=== PATIENT | male | born 1960 | race Caucasian/White ===

== ENCOUNTER 2017-12-13 08:57 | Emergency (ER) | payer BC ==
--- NOTE | 2017-12-13 09:08 | PDOC ---
History of Present Illness - General Chief Complaint: Pain Stated Complaint: RT KNEE PAIN Time Seen by Provider: 12/13/17 09:08 - History of Present Illness Initial Comments: 12/13/17 09:09 52-year-old male with a history of cardiac bypass status post stent on aspirin 4 years ago, left knee meniscus surgery 6 years ago, hypertension, diabetes, arthritis presents to emergency department with right knee pain for 2 days. Patient reports pain began after he pushed himself at [facility]. He reports he ran in place for an hour in the pool and may have unevenly stepped on the drain in the pool. He reports since then pain mostly on the medial aspect of his knee, mostly while ambulating and worse with twisting or pivoting with the right knee. He denies any current pain while seated. He took 2 ibuprofen this morning, which he reports he is not supposed to take due to his cardiac bypass and reports improvement in his pain. Denies any popping of the knee. Denies any recent falls on the knee. Has otherwise been in his usual state of health. He's been using a cane to ambulate for the last 2 days studies had since his left knee surgery. Denies fevers, chills, chest pain, shortness of breath, abdominal pain, nausea/vomiting/diarrhea, lower extremity edema, recent immobility Past History - Past Medical History Allergies/Adverse Reactions: Allergies Allergy/AdvReac Type Severity Reaction Status Date / Time No Known Allergies Allergy Verified 12/13/17 08:58 Home Medications: Ambulatory Orders Aspirin Coated [Ecotrin -] 81 mg PO DAILY 07/03/16 Metformin HCl 850 mg PO BID 07/03/16 Metoprolol Succinate [Toprol Xl] 100 mg PO DAILY 07/03/16 Atorvastatin Ca [Lipitor] 80 mg PO HS 12/13/17 Celecoxib [Celebrex -] 200 mg PO DAILY 12/13/17 Furosemide [Lasix -] 40 mg PO PRN PRN 12/13/17 Ibuprofen 400 mg PO PRN PRN 12/13/17 Olmesartan Medoxomil 40 mg PO DAILY 12/13/17 Cardiac Disorders: Yes (3X BYPASS/STENT) Diabetes: Yes - Immunization History Immunization Up to Date: Yes - Suicide/Smoking/Psychosocial Hx Smoking Status: No Smoking History: Unknown if ever smoked Have you smoked in the past 12 months: No Number of Cigarettes Smoked Daily: 0 If you are a former smoker, when did you quit?: 2004 Hx Alcohol Use: No Drug/Substance Use Hx: No Substance Use Type: None Review of Systems - Review of Systems Comments:: 12/13/17 09:13 GENERAL/CONSTITUTIONAL: No fever or chills. No weakness. HEAD, EYES, EARS, NOSE AND THROAT: No change in vision. No ear pain or discharge. No sore throat. GASTROINTESTINAL: No nausea, vomiting, diarrhea or constipation. GENITOURINARY: No dysuria, frequency, or change in urination. CARDIOVASCULAR: No chest pain or shortness of breath. RESPIRATORY: No cough, wheezing, or hemoptysis. MUSCULOSKELETAL: +knee pain. No neck or back pain. SKIN: No rash NEUROLOGIC: No headache, vertigo, loss of consciousness, or change in strength/ sensation. ENDOCRINE: No increased thirst. No abnormal weight change. HEMATOLOGIC/LYMPHATIC: No anemia, easy bleeding, or history of blood clots. ALLERGIC/IMMUNOLOGIC: No hives or skin allergy. *Physical Exam - Physical Exam Comments: 12/13/17 09:13 GENERAL: Obese. Awake, alert, and fully oriented, in no acute distress HEAD: No signs of trauma EYES: PERRLA, EOMI, sclera anicteric, conjunctiva clear ENT: Auricles normal inspection, hearing grossly normal, nares patent, oropharynx clear without exudates. Moist mucosa NECK: Normal ROM, supple, no lymphadenopathy, JVD, or masses LUNGS: Breath sounds equal, clear to auscultation bilaterally. No wheezes, and no crackles HEART: Regular rate and rhythm, normal S1 and S2, no murmurs, rubs or gallops ABDOMEN: Soft, nontender, normoactive bowel sounds. No guarding, no rebound. No masses EXTREMITIES: Normal range of motion, no edema. No clubbing or cyanosis. No cords, erythema, or tenderness. R knee with no ttp, no pain with valgus or varus strain, no MCL, LCL ttp, negative tim test. Pt able to ambulate in ED and bear weight on R knee with no assistance. 2+ peripheral pulses. NEUROLOGICAL: Normal speech, cranial nerves intact, negative pronator drift, 5/ 5 strength in all 4 extremities, normal sensation to light touch in all 4 extremities, normal cerebellar exam, normal gait, normal reflexes and tone SKIN: Warm, Dry, normal turgor, no rashes or lesions noted. Medical Decision Making - Medical Decision Making 12/13/17 09:15 57-year-old male with multiple medical problems presents with right knee pain after pushing himself at physical therapy 2 days ago. Exam with no tenderness to palpation, no deformities to the right knee, and minimal concern for ACL tear given patient able to bear weight and negative Tim's test. Given pain mostly with bearing weight and worse with pivoting on the right knee, likely meniscal tear. Will obtain an x-ray to rule out bony injury and treat pain with tramadol and reassess. 12/13/17 10:21 X-ray negative for acute pathology. Tramadol has helped moderately with the pain. Will refer the patient to orthopedics and prescribed tramadol as needed for pain. Patient requests discharge home. I discussed the physical exam findings, ancillary test results and final diagnoses with the patient. I answered all of the patient's questions. The patient was satisfied with the care received and felt comfortable with the discharge plan and treatment plan. The patient will call their primary care physician within 24 hours to arrange follow-up and will return to the Emergency Department with any new, persistent or worsening symptoms. *DC/Admit/Observation/Transfer Diagnosis at time of Disposition: Knee pain - Discharge Dispostion Disposition: HOME Condition at time of disposition: Stable Admit: No - Referrals Referrals: Charly Morales MD [Staff Physician] - - Patient Instructions Printed Discharge Instructions: DI for Knee Pain Additional Instructions: Call Dr. Morales's office for a follow-up appointment with an orthopedic doctor within 1-2 weeks. Take Tylenol as needed for pain (you can safely take 1000mg every 6 hours). If Tylenol is not adequately controlling your pain, take tramadol as needed for pain control. Tramadol can make you sleepy and thus do not drive a car or operate machinery while taking this medication. Return to emergency department if you have any new, worsening or concerning symptoms. - Post Discharge Activity - Attestations Physician Attestion: 12/13/17 10:24 I, Dr. Oziel Verdin MD, attest that this document has been prepared under my direction and personally reviewed by me in its entirety. I further attest, that it accurately reflects all work, treatment, procedures and medical decision -making performed by me.
[2017-12-13] MEDS ORDERED: traMADol HCL 50 MG TABLET PO ONE (09:09)
[2017-12-13 09:10] VITALS: BP 145/79; PULSE 80; TEMP 98.9; BMI 52.9
[2017-12-13] MEDS ORDERED: traMADol HCL 50 MG TABLET ONE (09:11)
== END 2017-12-13 10:35 | disposition home or self-care (01) ==
LOC: FER 08:57
DX: M25.561 Pain in right knee (principal); E11.9 Type 2 diabetes mellitus without complications; Z95.5 Presence of coronary angioplasty implant and graft; Z87.891 Personal history of nicotine dependence
CPT/HCPCS: 73562-TC-RT-FY; 99282-25

== ENCOUNTER 2019-01-08 17:11 | Emergency (ER) | payer BC ==
--- NOTE | 2019-01-08 17:20 | PDOC ---
History of Present Illness - General History Source: Patient Exam Limitations: No Limitations - History of Present Illness Initial Comments: 01/08/19 17:48 The patient is a 58 year old male, with a significant past medical history of HTN, morbid obesity, HLD, COPD, CAD s/p PCI, CABG x3, Sleep apnea (CPAP nightly ) who presents to the emergency department with complaint of dizziness when rolling over in bed for 2 days. He states his symptoms were worse last night and associated with sweating. He states he was prompted to come to the ED this evening because he was laying on the couch watching TV and developed spinning sensation which lasted 60-80 seconds followed by 10 minutes of nausea. He denies any other associated symptoms. He states he has about 4-5 shots of ETOH each evening. He denies drinking today. The patient denies chest pain, shortness of breath, headache. The patient denies fever, chills, vomit, diarrhea and constipation. The patient denies dysuria, frequency, urgency and hematuria. Allergies: NKDA PCP - Dr. Banda <Nataliia Urbano - Last Filed: 01/08/19 17:48> <Vanita Porter - Last Filed: 01/08/19 18:36> - General Chief Complaint: Lightheaded Stated Complaint: DIZZINESS Time Seen by Provider: 01/08/19 17:19 Past History <Nataliia Urbano - Last Filed: 01/08/19 17:48> - Past Medical History Cardiac Disorders: Yes (3X BYPASS/STENT) COPD: No Diabetes: Yes - Surgical History Cardiac Surgery: Yes (TRIP BYPASS,STENT) - Immunization History Immunization Up to Date: Yes - Suicide/Smoking/Psychosocial Hx Smoking Status: No Smoking History: Unknown if ever smoked Have you smoked in the past 12 months: No Number of Cigarettes Smoked Daily: 0 If you are a former smoker, when did you quit?: 2004 Hx Alcohol Use: No Drug/Substance Use Hx: No Substance Use Type: None <Vanita Porter - Last Filed: 01/08/19 18:36> - Past Medical History Allergies/Adverse Reactions: Allergies Allergy/AdvReac Type Severity Reaction Status Date / Time No Known Allergies Allergy Verified 01/08/19 17:12 Home Medications: Ambulatory Orders Aspirin [ASA -] 81 mg PO DAILY 01/08/19 Atorvastatin Ca [Lipitor] 80 mg PO HS 01/08/19 Celecoxib [Celebrex] 200 mg PO DAILY 01/08/19 Metoprolol Succinate [Toprol Xl -] 100 mg PO DAILY 01/08/19 Olmesartan Medoxomil [Benicar] 20 mg PO DAILY 01/08/19 Spironolactone [Aldactone] 25 mg PO DAILY 01/08/19 metFORMIN HCL [Metformin HCl] 850 mg PO BID 01/08/19 Review of Systems - Review of Systems Able to Perform ROS?: Yes Comments:: 01/08/19 17:48 GENERAL/CONSTITUTIONAL: (+) sweating. No fever or chills. No weakness. HEAD, EYES, EARS, NOSE AND THROAT: No change in vision. No ear pain or discharge. No sore throat. CARDIOVASCULAR: No chest pain or shortness of breath. RESPIRATORY: No cough, wheezing, or hemoptysis. GASTROINTESTINAL: (+) nausea, No vomiting, diarrhea or constipation. GENITOURINARY: No dysuria, frequency, or change in urination. MUSCULOSKELETAL: No joint or muscle swelling or pain. No neck or back pain. SKIN: No rash NEUROLOGIC: (+) Dizziness. No headache, loss of consciousness, or change in strength/sensation. ENDOCRINE: No increased thirst. No abnormal weight change. HEMATOLOGIC/LYMPHATIC: No anemia, easy bleeding, or history of blood clots. ALLERGIC/IMMUNOLOGIC: No hives or skin allergy. <Nataliia Urbano - Last Filed: 01/08/19 17:48> *Physical Exam - Vital Signs Last Vital Signs Temp Pulse Resp BP Pulse Ox 97.7 F 69 20 138/75 100 01/08/19 17:15 01/08/19 17:15 01/08/19 17:15 01/08/19 17:15 01/08/19 17:15 - Physical Exam Comments: 01/08/19 17:49 GENERAL: Awake, alert, and fully oriented, morbidly obese. in no acute distress HEAD: No signs of trauma EYES: PERRLA, EOMI, sclera anicteric, conjunctiva clear ENT: Auricles normal inspection, hearing grossly normal, nares patent, oropharynx clear without exudates. Moist mucosa NECK: Normal ROM, supple, no lymphadenopathy, JVD, or masses LUNGS: Breath sounds equal, clear to auscultation bilaterally. No wheezes, and no crackles HEART: Regular rate and rhythm, normal S1 and S2, no murmurs, rubs or gallops ABDOMEN: Obese. Soft, nontender, normoactive bowel sounds. No guarding, no rebound. No masses EXTREMITIES: Normal range of motion, no edema. No clubbing or cyanosis. No cords, erythema, or tenderness NEUROLOGICAL: Cranial nerves II through XII grossly intact. Normal speech, normal gait SKIN: Warm, Dry, normal turgor, no rashes or lesions noted. <Nataliia Urbano - Last Filed: 01/08/19 17:48> ED Treatment Course - LABORATORY CBC & Chemistry Diagram: 01/08/19 17:41 01/08/19 17:41 <Vanita Porter - Last Filed: 01/08/19 18:36> *DC/Admit/Observation/Transfer - Attestations Scribe Attestion: 01/08/19 17:49 Documentation prepared by Nataliia Urbano, acting as medical affairs specialist for Vanita Porter MD <Nataliia Urbano - Last Filed: 01/08/19 17:48> - Discharge Dispostion Decision to Admit order: No <Vanita Porter - Last Filed: 01/08/19 18:36> Diagnosis at time of Disposition: Lightheadedness - Discharge Dispostion Disposition: HOME Condition at time of disposition: Good - Patient Instructions Printed Discharge Instructions: DI for Dizziness-Nonvertigo Additional Instructions: you came to the ED for lightheadness. Your blood work was normal and youe EKG was unchanged. you should call Dr. Spain for follow up on Friday. You should return to the ED for passing out, chest pain or shortness of breath, other new or worsening symptoms.
[2019-01-08 17:21] VITALS: BP 138/75; PULSE 69; TEMP 97.7; BMI 54.2
[2019-01-08 17:56] LABS: BASO % 1.6 % (0-2.0); EOS % 1.9 % (0-4.5); HEMATOCRIT 46.2 % (35.4-49); HEMOGLOBIN 15.2 GM/dl (11.7-16.9); LYMPH % 16.8 % (8-40); MEAN PLT VOLUME 7.5 fl (7.5-11.1); MONO % 6.1 % (3.8-10.2); NEUT % 73.6 % (42.8-82.8); PLATELET COUNT 258 K/MM3 (134-434); RBC 4.91 M/mm3 (4.00-5.60); RDW 14.1 % (11.9-15.9); WHITE BLOOD COUNT 9.7 K/mm3 (4.0-10.8)
[2019-01-08 18:10] LABS: ALBUMIN 4.1 g/dl (3.4-5.0); ALK PHOS 107 U/L (45-117); ANION GAP 8 MMOL/L (8-16); BILIRUBIN,TOTAL 0.8 mg/dl (0.2-1); BLOOD UREA NITROGEN 22 mg/dl (7-18); CALCIUM 9.2 mg/dl (8.5-10); CHLORIDE 101 mmol/L (98-107); CO2 27 mmol/L (21-32); CREATININE 0.8 mg/dl (0.55-1.3); GLUCOSE,RANDOM 151 mg/dl (74-106); POTASSIUM 4.4 mmol/L (3.5-5.1); SGOT/AST 24 U/L (15-37); SGPT/ALT 33 U/L (13-61); SODIUM 136 mmol/L (136-145)
--- NOTE | 2019-01-09 11:37 | EKG ---
Test Reason : Blood Pressure : / mmHG Vent. Rate : 075 BPM Atrial Rate : 075 BPM P-R Int : 156 ms QRS Dur : 176 ms QT Int : 440 ms P-R-T Axes : 055 027 049 degrees QTc Int : 491 ms NORMAL SINUS RHYTHM RIGHT BUNDLE BRANCH BLOCK INFERIOR INFARCT (CITED ON OR BEFORE 25-MAY-2018) ABNORMAL ECG WHEN COMPARED WITH ECG OF 25-MAY-2018 17:25, RIGHT BUNDLE BRANCH BLOCK HAS REPLACED RSR' PATTERN IN V1 CRITERIA FOR ANTERIOR INFARCT ARE NO LONGER PRESENT Confirmed by RAH FARRELL MD ([id number]) on 01/09/2019 11:36:34 AM Referred By: MD CHEEMA Confirmed By:RAH FARRELL MD
== END 2019-01-08 18:40 | disposition home or self-care (01) ==
LOC: FER 17:11
DX: R42 Dizziness and giddiness (principal); Z95.5 Presence of coronary angioplasty implant and graft; Z95.1 Presence of aortocoronary bypass graft; E11.9 Type 2 diabetes mellitus without complications
CPT/HCPCS: 36415; 80053; 82550; 84484; 85025; 93005; 99283-25

== ENCOUNTER 2019-03-17 20:51 | Emergency (ER) | payer BC | END 2019-03-17 21:55 | disposition home or self-care (01) | LOC: FER 20:51 ==

== ENCOUNTER 2023-06-08 18:25 | Inpatient (IN) | payer BC, OTHER ==
[2023-06-08] MEDS ORDERED: VANCOMYCIN HCL 1,500 MG in DEXTROSE 5%-WATER - 500 ML IVPB ONE (18:35)
[2023-06-08] MEDS ORDERED: PIPERACILLIN/TAZOB 4.5 GM 4.5 GM in DEXTROSE 5%-WATER 100 ML IVPB ONE (18:35)
[2023-06-08] MEDS ORDERED: SODIUM CHLORIDE 0.9% 1000 ML INFUS.BAG IV ONE ×2 (18:39→18:43)
[2023-06-08] MEDS ORDERED: ACETAMINOPHEN 1000 MG/100 ML BAG IVPB ONE ×2 (18:39→19:42)
[2023-06-08] MEDS ORDERED: VANCOMYCIN 1,000 MG VIAL (RESTRICTED TO ID ONLY) ONE (19:15)
[2023-06-08] MEDS ORDERED: VANCOMYCIN 500 MG VIAL (RESTRICTED TO ID ONLY) ONE (19:15)
[2023-06-08 19:35] LABS: HEMATOCRIT 46.6 % (35.4-49); HEMOGLOBIN 15.2 G/dL (11.7-16.9); MCH 30.8 pg (25.7-33.7); MCHC 32.6 g/dl (32.0-35.9); MEAN CELL VOLUME 94.8 fl (80-96); MEAN PLT VOLUME 7.5 fl (7.5-11.1); PLATELET COUNT 190.1 10^3/uL (134-434); RBC 4.92 10^6/uL (4.00-5.60); RDW 14.6 % (11.9-15.9); WHITE BLOOD COUNT 16.2 10^3/uL (4.0-10.8)
[2023-06-08 19:41] LABS: INR 1.58 (0.83-1.09); PROTHROMBIN TIME (PATIENT) 18.3 SEC (9.7-13.0)
[2023-06-08 19:44] LABS: ACTIVATED PTT 30.8 SECONDS (25.2-36.5)
[2023-06-08 20:17] LABS: VENOUS BASE EXCESS 0.5 mmol/L (-2-2); VENOUS O2 SATURATION 92.6 % (70-80); VENOUS PCO2 38.3 mmHg (38-52); VENOUS PH 7.426 (7.310-7.410)
[2023-06-08 20:24] LABS: ALBUMIN 3.6 g/dl (3.4-5.0); BLOOD UREA NITROGEN 18.8 mg/dl (7-18); CALCIUM 8.4 mg/dl (8.5-10.1); CREATININE 1.2 mg/dl (0.6-1.3); MAGNESIUM 1.3 mg/dL (1.8-2.4); POTASSIUM 3.5 mmol/L (3.5-5.1); SGOT/AST 16.2 U/L (15-37); SGPT/ALT 19.4 U/L (7-52); TOT PROT 5.9 g/dl (6.4-8.2)
[2023-06-08 20:28] LABS: BILIRUBIN,TOTAL 1.2 mg/dL (0.2-1)
[2023-06-08 21:05] LABS: LACTIC ACID 2.8 mmol/L (0.4-2.0)
[2023-06-08] MEDS ORDERED: ACETAMINOPHEN 500 MG TABLET (FP) ONE (21:26)
[2023-06-08] MEDS ORDERED: ACETAMINOPHEN 500 MG TABLET (FP) PO ONE (21:26)
[2023-06-08] MEDS ORDERED: PIPERACILLIN/TAZOBACTAM 4.5 GM VIAL IVPB ONE (21:36)
[2023-06-08] MEDS ORDERED: DOCUSATE SODIUM 100 MG CAPSULE (FP) PO PRN (22:06)
[2023-06-08] MEDS ORDERED: MAGNESIUM SULFATE IN WATER 2 GM/50 ML IVPB IVPB ONE (22:10)
[2023-06-08] MEDS ORDERED: MAGNESIUM OXIDE 400 MG TABLET (FP) PO ONE (22:10)
[2023-06-09 00:01] VITALS: BMI 116.4
[2023-06-09] MEDS ORDERED: PIPERACILLIN/TAZOB 3.375 GM 3.375 GM in DEXTROSE 5%-WATER - 50 ML IVPB SCH (03:00)
[2023-06-09] MEDS: PIPERACILLIN/TAZOB 3.375 GM 3.375 GM in DEXTROSE 5%-WATER - 50 ML IVPB SCH ×2 (04:19→11:45)
[2023-06-09] MEDS: INSULIN SLIDING SCALE (NOVOLOG) 1 VIAL SQ SCH ×4 (07:00→22:15)
[2023-06-09] MEDS ORDERED: VANCOMYCIN/WATER 2 GRAMS 2,000 MG/400 ML PIGGYBACK IVPB ONE (08:00)
[2023-06-09 09:31] LABS: INR 1.37 (0.83-1.09); PROTHROMBIN TIME (PATIENT) 15.8 SEC (9.7-13.0)
[2023-06-09] MEDS ORDERED: CELECOXIB 200 MG CAPSULE PO SCH (10:00)
[2023-06-09 10:21] LABS: BLOOD UREA NITROGEN 15.2 mg/dl (7-18); CALCIUM 8.3 mg/dl (8.5-10.1); CREATININE 1.1 mg/dl (0.6-1.3); MAGNESIUM 1.7 mg/dL (1.8-2.4); POTASSIUM 3.7 mmol/L (3.5-5.1)
[2023-06-09] MEDS ORDERED: LACTATED RINGERS SOLUTION 1,000 ML/1,000 ML INFUS.BAG IV SCH (11:30)
[2023-06-09 11:33] LABS: HEMATOCRIT 44.8 % (35.4-49); HEMOGLOBIN 14.3 GM/dL (11.7-16.9); MCH 29.9 pg (25.7-33.7); MCHC 31.8 g/dl (32.0-35.9); MEAN PLT VOLUME 8.2 fl (7.5-11.1); PLATELET COUNT 198 10^3/uL (134-434); RBC 4.77 M/mm3 (4.00-5.60); RDW 15.4 % (11.9-15.9); WHITE BLOOD COUNT 16.8 K/mm3 (4.0-10.0)
[2023-06-09] MEDS: ASPIRIN 81 MG CHEWABLE TABLETS PO SCH (11:46)
[2023-06-09 11:48] LABS: URIC ACID CRYSTALS FEW /hpf (NONE SEEN); URINE MUCUS FEW
[2023-06-09 12:15] LABS: ANISOCYTOSIS 0; HELMET CELLS 0; HOWELL-JOLLY BODIES 0; MACROCYTOSIS 0; OVALOCYTE 0; ROULEAU 0; SICKELED CELLS 0; TARGET CELLS 0; TEAR DROP CELLS 0; TOXIC GRANULATION 0
[2023-06-09] MEDS ORDERED: MAGNESIUM SULF 50% (8.12 MEQ/2 ML-1 GM VIAL) IVPB ONE (12:30)
[2023-06-09] MEDS: PIPERACILLIN/TAZOB 4.5 GM 4.5 GM in DEXTROSE 5%-WATER 100 ML IVPB SCH (17:29)
[2023-06-09] MEDS ORDERED: MAG HYDROX/AL HYDROX/SIMETH 30 ML UNIT-DOSE CUP PO PRN (21:27)
[2023-06-09] MEDS: ATORVASTATIN CA 80 MG TABLET (FP) PO SCH (22:11)
[2023-06-09] MEDS: ENOXAPARIN NA (PORCINE) 40 MG/0.4 ML DISP.SYRIN SQ SCH (23:30)
[2023-06-10] MEDS: PIPERACILLIN/TAZOB 4.5 GM 4.5 GM in DEXTROSE 5%-WATER 100 ML IVPB SCH ×3 (03:00→18:10)
[2023-06-10] MEDS: INSULIN SLIDING SCALE (NOVOLOG) 1 VIAL SQ SCH ×4 (06:34→21:31)
[2023-06-10 08:09] LABS: ALBUMIN 3.2 g/dl (3.4-5.0); BLOOD UREA NITROGEN 11.8 mg/dl (7-18); CREATININE 1.1 mg/dl (0.6-1.3); POTASSIUM 3.7 mmol/L (3.5-5.1); SGOT/AST 24.4 U/L (15-37); SGPT/ALT 25.5 U/L (7-52); TOT PROT 5.5 g/dl (6.4-8.2)
[2023-06-10] MEDS: ENOXAPARIN NA (PORCINE) 40 MG/0.4 ML DISP.SYRIN SQ SCH ×2 (09:10→21:25)
[2023-06-10] MEDS: ASPIRIN 81 MG CHEWABLE TABLETS PO SCH (09:10)
[2023-06-10] MEDS: FAMOTIDINE 20 MG TABLET PO SCH (09:10)
[2023-06-10 10:25] LABS: BILIRUBIN,TOTAL 1.2 mg/dL (0.2-1)
[2023-06-10 11:40] LABS: BASO % 0.5 % (0-2.0); EOS % 0.2 % (0-4.5); HEMATOCRIT 39.1 % (35.4-49); HEMOGLOBIN 12.8 GM/dL (11.7-16.9); MCHC 32.8 g/dl (32.0-35.9); MEAN CELL VOLUME 91.5 fl (80-96); MEAN PLT VOLUME 7.5 fl (7.5-11.1); MONO % 4.8 % (3.8-10.2); NEUT % 87.5 % (42.8-82.8); PLATELET COUNT 195 10^3/uL (134-434); RBC 4.28 M/mm3 (4.00-5.60); RDW 15.6 % (11.9-15.9); WHITE BLOOD COUNT 14.3 K/mm3 (4.0-10.0)
[2023-06-10] MEDS: NYSTATIN 100,000 UNIT/GM TOPICAL CREAM 15 GM TUBE TP SCH ×2 (18:11→21:26)
[2023-06-10] MEDS: ACETAMINOPHEN 325 MG TABLET (FP) PO PRN (21:25)
[2023-06-10] MEDS: ATORVASTATIN CA 80 MG TABLET (FP) PO SCH (21:25)
[2023-06-11] MEDS: PIPERACILLIN/TAZOB 4.5 GM 4.5 GM in DEXTROSE 5%-WATER 100 ML IVPB SCH ×3 (01:57→18:31)
[2023-06-11] MEDS: INSULIN SLIDING SCALE (NOVOLOG) 1 VIAL SQ SCH ×4 (06:16→21:24)
[2023-06-11 07:49] LABS: HEMOGLOBIN 13.2 G/dL (11.7-16.9); MCH 30.5 pg (25.7-33.7); MCHC 32.1 g/dl (32.0-35.9); MEAN CELL VOLUME 94.9 fl (80-96); MEAN PLT VOLUME 7.8 fl (7.5-11.1); PLATELET COUNT 164.4 10^3/uL (134-434); RBC 4.32 10^6/uL (4.00-5.60); RDW 15.4 % (11.9-15.9); WHITE BLOOD COUNT 8.7 10^3/uL (4.0-10.8)
[2023-06-11 08:03] LABS: BLOOD UREA NITROGEN 12.4 mg/dl (7-18); CALCIUM 7.6 mg/dl (8.5-10.1); POTASSIUM 3.7 mmol/L (3.5-5.1)
[2023-06-11] MEDS: ENOXAPARIN NA (PORCINE) 40 MG/0.4 ML DISP.SYRIN SQ SCH ×2 (12:30→21:21)
[2023-06-11] MEDS: ASPIRIN 81 MG CHEWABLE TABLETS PO SCH (12:30)
[2023-06-11] MEDS: FAMOTIDINE 20 MG TABLET PO SCH (12:31)
[2023-06-11] MEDS: NYSTATIN 100,000 UNIT/GM TOPICAL CREAM 15 GM TUBE TP SCH (12:32)
[2023-06-11] MEDS: ACETAMINOPHEN 325 MG TABLET (FP) PO PRN (18:30)
[2023-06-11] MEDS: ATORVASTATIN CA 80 MG TABLET (FP) PO SCH (21:21)
[2023-06-12] MEDS: PIPERACILLIN/TAZOB 4.5 GM 4.5 GM in DEXTROSE 5%-WATER 100 ML IVPB SCH ×3 (01:53→20:42)
[2023-06-12] MEDS: NYSTATIN 100,000 UNIT/GM TOPICAL CREAM 15 GM TUBE TP SCH ×3 (01:54→21:23)
[2023-06-12] MEDS: ENOXAPARIN NA (PORCINE) 40 MG/0.4 ML DISP.SYRIN SQ SCH ×2 (09:56→21:23)
[2023-06-12] MEDS: ASPIRIN 81 MG CHEWABLE TABLETS PO SCH (09:56)
[2023-06-12] MEDS: FAMOTIDINE 20 MG TABLET PO SCH (09:56)
[2023-06-12] MEDS: INSULIN SLIDING SCALE (NOVOLOG) 1 VIAL SQ SCH ×4 (09:57→21:14)
[2023-06-12 11:43] LABS: INR 1.24 (0.83-1.09); PROTHROMBIN TIME (PATIENT) 14.3 SEC (9.7-13.0)
[2023-06-12] MEDS: ATORVASTATIN CA 80 MG TABLET (FP) PO SCH (21:23)
[2023-06-13] MEDS: PIPERACILLIN/TAZOB 4.5 GM 4.5 GM in DEXTROSE 5%-WATER 100 ML IVPB SCH ×3 (02:27→17:25)
[2023-06-13] MEDS: INSULIN SLIDING SCALE (NOVOLOG) 1 VIAL SQ SCH ×4 (06:40→22:09)
[2023-06-13 08:42] LABS: HEMATOCRIT 37.5 % (35.4-49); HEMOGLOBIN 12.2 G/dL (11.7-16.9); MCH 30.6 pg (25.7-33.7); MCHC 32.4 g/dl (32.0-35.9); MEAN CELL VOLUME 94.4 fl (80-96); MEAN PLT VOLUME 8.1 fl (7.5-11.1); PLATELET COUNT 174.9 10^3/uL (134-434); RBC 3.97 10^6/uL (4.00-5.60); RDW 15.5 % (11.9-15.9); WHITE BLOOD COUNT 6.9 10^3/uL (4.0-10.8)
[2023-06-13] MEDS: NYSTATIN 100,000 UNIT/GM TOPICAL CREAM 15 GM TUBE TP SCH ×2 (09:23→22:09)
[2023-06-13] MEDS: ENOXAPARIN NA (PORCINE) 40 MG/0.4 ML DISP.SYRIN SQ SCH ×2 (09:23→22:08)
[2023-06-13] MEDS: FAMOTIDINE 20 MG TABLET PO SCH (09:23)
[2023-06-13] MEDS: ASPIRIN 81 MG CHEWABLE TABLETS PO SCH (09:23)
[2023-06-13 09:27] LABS: BLOOD UREA NITROGEN 10.5 mg/dl (7-18); CALCIUM 7.6 mg/dl (8.5-10.1); CREATININE 0.8 mg/dl (0.6-1.3); POTASSIUM 3.7 mmol/L (3.5-5.1)
[2023-06-13] MEDS: VANCOMYCIN PREMIX 1.5 GM 1,500 MG/300 ML BAG IVPB SCH (11:55)
[2023-06-13] MEDS: ATORVASTATIN CA 80 MG TABLET (FP) PO SCH (22:08)
[2023-06-14] MEDS: PIPERACILLIN/TAZOB 4.5 GM 4.5 GM in DEXTROSE 5%-WATER 100 ML IVPB SCH ×3 (02:11→18:03)
[2023-06-14] MEDS: INSULIN SLIDING SCALE (NOVOLOG) 1 VIAL SQ SCH ×2 (07:20→12:43)
[2023-06-14 09:06] LABS: BLOOD UREA NITROGEN 10.1 mg/dl (7-18); CALCIUM 7.8 mg/dl (8.5-10.1); CREATININE 0.9 mg/dl (0.6-1.3)
[2023-06-14] MEDS: FAMOTIDINE 20 MG TABLET PO SCH (10:18)
[2023-06-14] MEDS: ASPIRIN 81 MG CHEWABLE TABLETS PO SCH (10:18)
[2023-06-14] MEDS: ENOXAPARIN NA (PORCINE) 40 MG/0.4 ML DISP.SYRIN SQ SCH ×2 (10:19→22:50)
[2023-06-14] MEDS: NYSTATIN 100,000 UNIT/GM TOPICAL CREAM 15 GM TUBE TP SCH ×2 (10:19→22:59)
[2023-06-14 11:53] LABS: BASO % 0.6 % (0-2.0); EOS % 2.4 % (0-4.5); HEMATOCRIT 38.1 % (35.4-49); HEMOGLOBIN 12.6 GM/dL (11.7-16.9); LYMPH % 13.2 % (8-40); MCH 30.2 pg (25.7-33.7); MCHC 33.1 g/dl (32.0-35.9); MEAN CELL VOLUME 91.2 fl (80-96); MONO % 6.9 % (3.8-10.2); NEUT % 76.9 % (42.8-82.8); PLATELET COUNT 225 10^3/uL (134-434); RBC 4.17 M/mm3 (4.00-5.60); WHITE BLOOD COUNT 7.9 K/mm3 (4.0-10.0)
[2023-06-14] MEDS: VANCOMYCIN PREMIX 1.5 GM 1,500 MG/300 ML BAG IVPB SCH (12:27)
[2023-06-14] MEDS: ACETAMINOPHEN 325 MG TABLET (FP) PO PRN (18:17)
[2023-06-14] MEDS: ATORVASTATIN CA 80 MG TABLET (FP) PO SCH (22:50)
[2023-06-15] MEDS: PIPERACILLIN/TAZOB 4.5 GM 4.5 GM in DEXTROSE 5%-WATER 100 ML IVPB SCH ×3 (01:47→18:33)
[2023-06-15 09:01] LABS: HEMATOCRIT 40.5 % (35.4-49); HEMOGLOBIN 12.9 G/dL (11.7-16.9); MCHC 31.7 g/dl (32.0-35.9); MEAN CELL VOLUME 94.5 fl (80-96); MEAN PLT VOLUME 8.1 fl (7.5-11.1); PLATELET COUNT 257.8 10^3/uL (134-434); RBC 4.29 10^6/uL (4.00-5.60); WHITE BLOOD COUNT 8.9 10^3/uL (4.0-10.8)
[2023-06-15 10:00] LABS: ALBUMIN 3.2 g/dl (3.4-5.0); BLOOD UREA NITROGEN 10.5 mg/dl (7-18); POTASSIUM 3.9 mmol/L (3.5-5.1); SGOT/AST 35.8 U/L (15-37); SGPT/ALT 44.5 U/L (7-52); TOT PROT 6.4 g/dl (6.4-8.2)
[2023-06-15] MEDS: FAMOTIDINE 20 MG TABLET PO SCH (10:40)
[2023-06-15] MEDS: ASPIRIN 81 MG CHEWABLE TABLETS PO SCH (10:40)
[2023-06-15] MEDS: SPIRONOLACTONE 25 MG TABLET PO SCH (10:40)
[2023-06-15] MEDS: FUROSEMIDE 20 MG TABLET (FP) PO SCH (10:40)
[2023-06-15] MEDS: NYSTATIN 100,000 UNIT/GM TOPICAL CREAM 15 GM TUBE TP SCH ×2 (10:41→21:19)
[2023-06-15] MEDS: ENOXAPARIN NA (PORCINE) 40 MG/0.4 ML DISP.SYRIN SQ SCH ×2 (10:41→21:18)
[2023-06-15 11:06] LABS: PLATELET ESTIMATE ADEQUATE
[2023-06-15] MEDS: VANCOMYCIN PREMIX 1.5 GM 1,500 MG/300 ML BAG IVPB SCH ×2 (14:23→21:18)
[2023-06-15] MEDS: ATORVASTATIN CA 80 MG TABLET (FP) PO SCH (21:18)
[2023-06-16] MEDS: PIPERACILLIN/TAZOB 4.5 GM 4.5 GM in DEXTROSE 5%-WATER 100 ML IVPB SCH ×3 (02:18→18:15)
[2023-06-16] MEDS: ACETAMINOPHEN 325 MG TABLET (FP) PO PRN ×2 (06:12→21:06)
[2023-06-16 08:51] LABS: HEMATOCRIT 42.1 % (35.4-49); HEMOGLOBIN 13.1 G/dL (11.7-16.9); MCH 29.7 pg (25.7-33.7); MCHC 31.2 g/dl (32.0-35.9); PLATELET COUNT 324.9 10^3/uL (134-434); RBC 4.43 10^6/uL (4.00-5.60); RDW 15.3 % (11.9-15.9); WHITE BLOOD COUNT 9.5 10^3/uL (4.0-10.8)
[2023-06-16 09:43] LABS: BLOOD UREA NITROGEN 9.5 mg/dl (7-18); CALCIUM 8.2 mg/dl (8.5-10.1); CREATININE 1.1 mg/dl (0.6-1.3); POTASSIUM 4.5 mmol/L (3.5-5.1)
[2023-06-16] MEDS: ASPIRIN 81 MG CHEWABLE TABLETS PO SCH (10:20)
[2023-06-16] MEDS: FAMOTIDINE 20 MG TABLET PO SCH (10:20)
[2023-06-16] MEDS: SPIRONOLACTONE 25 MG TABLET PO SCH (10:21)
[2023-06-16] MEDS: FUROSEMIDE 20 MG TABLET (FP) PO SCH (10:21)
[2023-06-16] MEDS: VANCOMYCIN PREMIX 1.5 GM 1,500 MG/300 ML BAG IVPB SCH ×2 (11:15→21:06)
[2023-06-16] MEDS: ENOXAPARIN NA (PORCINE) 40 MG/0.4 ML DISP.SYRIN SQ SCH ×2 (12:22→21:07)
[2023-06-16] MEDS: ATORVASTATIN CA 80 MG TABLET (FP) PO SCH (21:07)
[2023-06-16] MEDS: NYSTATIN 100,000 UNIT/GM TOPICAL CREAM 15 GM TUBE TP SCH (21:08)
[2023-06-17] MEDS: PIPERACILLIN/TAZOB 4.5 GM 4.5 GM in DEXTROSE 5%-WATER 100 ML IVPB SCH ×2 (03:12→10:28)
[2023-06-17 05:08] VITALS: RESP 18
[2023-06-17 08:58] LABS: HEMOGLOBIN 12.8 G/dL (11.7-16.9); MCH 30.2 pg (25.7-33.7); MEAN CELL VOLUME 94.6 fl (80-96); MEAN PLT VOLUME 7.6 fl (7.5-11.1); PLATELET COUNT 350.7 10^3/uL (134-434); RBC 4.23 10^6/uL (4.00-5.60); RDW 15.4 % (11.9-15.9); WHITE BLOOD COUNT 8.3 10^3/uL (4.0-10.8)
[2023-06-17 09:05] LABS: ALBUMIN 3.3 g/dl (3.4-5.0); BLOOD UREA NITROGEN 9.2 mg/dl (7-18); CALCIUM 8.2 mg/dl (8.5-10.1); POTASSIUM 4.3 mmol/L (3.5-5.1); SGOT/AST 38.7 U/L (15-37); SGPT/ALT 43.6 U/L (7-52); TOT PROT 6.8 g/dl (6.4-8.2)
[2023-06-17] MEDS: ENOXAPARIN NA (PORCINE) 40 MG/0.4 ML DISP.SYRIN SQ SCH ×2 (10:27→21:09)
[2023-06-17] MEDS: SPIRONOLACTONE 25 MG TABLET PO SCH (10:27)
[2023-06-17] MEDS: FUROSEMIDE 20 MG TABLET (FP) PO SCH (10:27)
[2023-06-17] MEDS: ASPIRIN 81 MG CHEWABLE TABLETS PO SCH (10:27)
[2023-06-17] MEDS: VANCOMYCIN PREMIX 1.5 GM 1,500 MG/300 ML BAG IVPB SCH (10:27)
[2023-06-17] MEDS: FAMOTIDINE 20 MG TABLET PO SCH (10:27)
[2023-06-17] MEDS: NYSTATIN 100,000 UNIT/GM TOPICAL CREAM 15 GM TUBE TP SCH ×2 (10:28→21:10)
[2023-06-17] MEDS: ACETAMINOPHEN 325 MG TABLET (FP) PO PRN (15:59)
[2023-06-17] MEDS ORDERED: levoFLOXacin 750 MG TABLET PO SCH (19:00)
[2023-06-17] MEDS: DOXYCYCLINE HYCLATE 100 MG CAPSULE PO SCH (19:09)
[2023-06-17] MEDS: ATORVASTATIN CA 80 MG TABLET (FP) PO SCH (21:09)
[2023-06-18] MEDS: FAMOTIDINE 20 MG TABLET PO SCH (09:41)
[2023-06-18] MEDS: ENOXAPARIN NA (PORCINE) 40 MG/0.4 ML DISP.SYRIN SQ SCH (09:41)
[2023-06-18] MEDS: ASPIRIN 81 MG CHEWABLE TABLETS PO SCH (09:41)
[2023-06-18] MEDS: FUROSEMIDE 20 MG TABLET (FP) PO SCH (09:41)
[2023-06-18] MEDS: DOXYCYCLINE HYCLATE 100 MG CAPSULE PO SCH (09:41)
[2023-06-18] MEDS: SPIRONOLACTONE 25 MG TABLET PO SCH (09:41)
[2023-06-18] MEDS: NYSTATIN 100,000 UNIT/GM TOPICAL CREAM 15 GM TUBE TP SCH (09:42)
[2023-06-18] MEDS: ACETAMINOPHEN 325 MG TABLET (FP) PO PRN (10:40)
[2023-06-18 12:21] VITALS: BP 143/95; PULSE 79; TEMP 98.2
== END 2023-06-18 15:15 | disposition home or self-care (01) | DRG 603 ==
LOC: FER 18:25 → FM/S 21:44
PROVIDERS: ADMIT Internal Medicine
PROC: 02HV33Z Insertion of Infusion Device into Superior Vena Cava, Percutaneous Approach (ICD-10-PCS; principal; 2023-06-12)
PROC: B518ZZA Fluoroscopy of Superior Vena Cava, Guidance (ICD-10-PCS; 2023-06-12)
DX: L03.116 Cellulitis of left lower limb (principal); Z68.43 Body mass index [BMI] 50.0-59.9, adult; E87.1 Hypo-osmolality and hyponatremia; E87.20 Acidosis, unspecified; B37.89 Other sites of candidiasis; E78.5 Hyperlipidemia, unspecified; I10 Essential (primary) hypertension; I25.10 Atherosclerotic heart disease of native coronary artery without angina pectoris; Z95.1 Presence of aortocoronary bypass graft; R50.9 Fever, unspecified; R00.0 Tachycardia, unspecified; R73.03 Prediabetes; E66.01 Morbid (severe) obesity due to excess calories; G47.30 Sleep apnea, unspecified; I45.10 Unspecified right bundle-branch block; E83.42 Hypomagnesemia; R80.8 Other proteinuria
CPT/HCPCS: 0241U-QW; 36415; 36569; 73590-TC-LT-FY; 73700-TC-RT; 75820-TC-FY; 80048; 80053; 81003; 81015; 82550; 82803; 82962; 83605; 83735; 84100; 85025; 85027; 85610; 85651; 85730; 86140; 87040; 87086; 93005; 93971-TC; 97116-GP; 97161-GP; 99285-25; G0480

== ENCOUNTER 2024-02-28 20:19 | Emergency (ER) | payer BC, OTHER ==
[2024-02-28 20:38] VITALS: BP 153/87; PULSE 92; RESP 20; TEMP 98.2; BMI 53.1
[2024-02-28] MEDS ORDERED: DIPHTH,PERTUSS(ACELL),TET 0.5 ML DISP.SYRIN IM ONE (20:59)
[2024-02-28] MEDS ORDERED: CEPHALEXIN MONOHYDRATE 500 MG CAPSULE (UD) ONE (20:59)
[2024-02-28] MEDS: DIPHTH,PERTUSS(ACELL),TET 0.5 ML DISP.SYRIN IM ONE (21:02)
[2024-02-28] MEDS: CEPHALEXIN MONOHYDRATE 500 MG CAPSULE (UD) PO ONE (21:02)
== END 2024-02-28 21:05 | disposition home or self-care (01) ==
LOC: FER 20:19
PROC: 3E0234Z Introduction of Serum, Toxoid and Vaccine into Muscle, Percutaneous Approach (ICD-10-PCS; principal; 2024-02-28)
DX: S60.552A Superficial foreign body of left hand, initial encounter (principal); W45.8XXA Other foreign body or object entering through skin, initial encounter; Y93.E5 Activity, floor mopping and cleaning; Z23 Encounter for immunization
CPT/HCPCS: 90715; 99283-25